=== PATIENT | female | born 1940 | race Two or more races ===

== ENCOUNTER 2018-02-14 13:28 | Outpatient (CLI) | payer OTHER | END 2018-02-14 13:35 | disposition home or self-care (01) | LOC: MAMO-SONO 13:28 | DX: Z12.31 Encounter for screening mammogram for malignant neoplasm of breast (principal); Z87.898 Personal history of other specified conditions; N60.11 Diffuse cystic mastopathy of right breast; N60.12 Diffuse cystic mastopathy of left breast; C50.412 Malignant neoplasm of upper-outer quadrant of left female breast ==

== ENCOUNTER 2018-06-05 14:54 | Outpatient (CLI) | payer OTHER | END 2018-06-05 14:57 | disposition home or self-care (01) | LOC: RAD 14:54 | DX: M47.817 Spondylosis without myelopathy or radiculopathy, lumbosacral region (principal); M16.0 Bilateral primary osteoarthritis of hip ==

== ENCOUNTER 2018-06-16 12:37 | Outpatient (CLI) | payer OTHER | END 2018-06-16 12:39 | disposition home or self-care (01) | LOC: SONOGRAMA 12:37 → MAMO-SONO 13:15 | DX: N18.2 Chronic kidney disease, stage 2 (mild) (principal) ==

== ENCOUNTER 2018-07-23 13:28 | Outpatient (CLI) | payer OTHER | END 2018-07-23 14:00 | disposition home or self-care (01) | LOC: NUCLEAR 13:28 | DX: M81.0 Age-related osteoporosis without current pathological fracture (principal) ==